=== PATIENT | female | born 2000 | race Caucasian/White ===

== ENCOUNTER 2023-06-07 13:40 | Outpatient (CLI) | payer BC, SELFPAY ==
[2023-06-07 23:27] LABS: Chlamydia DNA Amplified* Not Detected (No Detected); GC DNA Amplified* Not Detected (No Detected)
== END 2023-06-07 13:41 | disposition home or self-care (01) ==
PROVIDERS: PCP Registered Nurse; Visit Provider Registered Nurse
DX: Z11.3 Encounter for screening for infections with a predominantly sexual mode of transmission (principal)
CPT/HCPCS: 82947; 87491; 87591

== ENCOUNTER 2024-06-10 14:18 | Outpatient (CLI) | payer BC, SELFPAY ==
[2024-06-13 09:15] LABS: HPV Source Cervix; HPV, High Risk by TMA Detected
[2024-06-13 17:30] LABS: HPV Genotype 16 by TMA Not Detected; HPV Genotype 18/45 by TMA Not Detected; HPVG Source Cervix
== END 2024-06-10 14:19 | disposition home or self-care (01) ==
PROVIDERS: Visit Provider Registered Nurse
DX: Z12.4 Encounter for screening for malignant neoplasm of cervix (principal); Z13.6 Encounter for screening for cardiovascular disorders; Z13.1 Encounter for screening for diabetes mellitus; Z11.51 Encounter for screening for human papillomavirus (HPV)
CPT/HCPCS: 80061; 87624; 87625; 88141; 88142